=== PATIENT | female | born 2000 | race Caucasian/White ===

== ENCOUNTER 2020-12-27 00:55 | Emergency (ER) | payer OTHER ==
[~2020-12-27] VITALS: Ht 162.6 cm; Wt 61.4 kg
[2020-12-27 01:07] VITALS: TEMP 97.5
[2020-12-27] MEDS ORDERED: NAPROSYN500 MG PO (02:16)
[2020-12-27 02:35] VITALS: BP 135/87; PULSE 89
== END 2020-12-27 02:35 | disposition home or self-care (01) ==
LOC: COL.ER 00:55
DX: M23.91 Unspecified internal derangement of right knee (principal); F17.290 Nicotine dependence, other tobacco product, uncomplicated; X50.0XXA Overexertion from strenuous movement or load, initial encounter; Y93.41 Activity, dancing
CPT/HCPCS: 31289; L1830; L1846